=== PATIENT | female | born 1950 | race Caucasian/White ===

== ENCOUNTER 2018-03-13 10:03 | Inpatient (IN) ==
[2018-03-13] MEDS ORDERED: CeFAZolin Syr 2,000MG/20 ML 2,000 MG/20 ML SYRINGE IVPB ONE (10:31)
[2018-03-13] MEDS ORDERED: Ringers Solution, Lactated 1,000 ML IVC SCH ×2 (10:45→11:45)
[2018-03-13] MEDS ORDERED: Scopolamine Patch 1.5 MG PATCH.TD72 TD ONE (10:48)
--- NOTE | 2018-03-13 10:51 | Anesthesia Evaluation PreOp ---
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 Any Significant HX Other Medical History: Other (Left breast DCIS) Anesthesia History: Problems (PONV) Alcohol Use: none Drug use: none Medications and Allergies Rosuvastatin Calcium [Crestor] 5 mg PO DAILY 02/25/18 [History] 3 Allergy/AdvReac Type Severity Reaction Status Date / Time No Known Allergies Allergy Verified 03/13/18 10:34 - Meds/Allergy Pre-op Review Medications Reviewed: Yes Allergies Reviewed: Yes Beta Blockers on Current Med List: No Anesthesia Results - Labs POCT hgb 13.8 Anesthesia Exam Last Vital Signs Temp 97.9 F 03/13/18 10:29 Pulse 72 03/13/18 10:29 Resp 18 03/13/18 10:29 BP 132/74 03/13/18 10:29 Pulse Ox 97 03/13/18 10:29 Weight: 79 kg NPO (# of Hours): > 8 hrs - HEENT Pupil (Motor): Pupils equal, EOMI Mallampati: I Teeth: Missing, Poor dentition Oral Opening: Greater than 3 - CONDUIT REAMER OPERATOR LOC: Oriented - Cardiac Rhythm: Regular Murmur: None - Pulmonary Breath Sounds: bilateral Clear Respiratory Effort: Symmetrical Anesthesia Assess/Plan ASA Score: 3 Modified Hardy Scale for Level of Consciousness: Cooperative, oriented, and tranquil Anesthetic Plan: General (TIVA) Monitoring Plan: Standard Monitors Recovery Plan: PACU
[2018-03-13] MEDS ORDERED: *HR* Propofol 200 MG/20 ML VIAL IVP ONE (10:54)
[2018-03-13] MEDS ORDERED: Dexamethasone 4 MG/ML VIAL ONE (10:54)
[2018-03-13] MEDS ORDERED: *HR* FentaNYL (PF) 100 MCG/2 ML VIAL ONE (10:54)
[2018-03-13] MEDS ORDERED: *HR* Midazolam HCl 2 MG/2 ML VIAL ONE (10:54)
[2018-03-13] MEDS ORDERED: Ondansetron 4 MG/2 ML VIAL ONE (10:54)
[2018-03-13] MEDS ORDERED: Lidocaine -MPF 2% 2 ML VIAL ONE (10:54)
[2018-03-13] MEDS ORDERED: Propofol 500 MG/50 ML INFUS..BTL ONE (10:55)
--- NOTE | 2018-03-13 11:33 | History & Physical Report ---
Date of Encounter: 03/13/18 Time of Encounter: 11:32 24 Hour HP Update - Instructions Instructions: If the History and Physical is less than 30 days old and was completed prior to A.M. admission and or procedure and has NOT been updated on calendar day of procedure please complete this update prior to performing procedure. - Update Patient reports changes in Medical Condition: No Changes in examination, assessment, or condition: No Changes in Medication: No Preop tests/diagnostics Reviewed: Yes Surgery Remains Indicated: Yes Consent for Planned Operative Procedure(s) Verified: Yes - Pre-Operative Checklist Preoperative Checklist Indicated: Yes Prophylactic Antibiotic Ordered: Yes Home Medications Include Beta Zonia: No
[2018-03-13] MEDS ORDERED: MORPHINE SUL Oral CONC 10 MG/0.5 ML ORAL.SYG SL PRN (11:43)
[2018-03-13] MEDS ORDERED: *HR* Promethazine 25 MG/ML VIAL IVP PRN (11:43)
[2018-03-13] MEDS ORDERED: Ondansetron 4 MG/2 ML VIAL IVP ONE (11:43)
[2018-03-13] MEDS ORDERED: *HR* Meperidine 25 MG/ML SYRINGE IVP PRN (11:43)
[2018-03-13] MEDS ORDERED: Acetaminophen IV 1,000 MG/100 ML INFUS..BTL IVPB ONE (11:43)
[2018-03-13] MEDS ORDERED: Naloxone 0.4 MG/ML INJ IVP PRN ×2 (11:43→17:49)
[2018-03-13] MEDS ORDERED: Albuterol 2.5 MG/3 ML NEBULIZER IH ONE ×2 (11:43→13:47)
[2018-03-13] MEDS ORDERED: *HR* OxyCODONE Immed Rel 5 MG TABLET PO PRN (11:43)
[2018-03-13] MEDS ORDERED: *HR* Succinylcholine 200 MG/10 ML VIAL IVP ONE (12:40)
--- NOTE | 2018-03-13 13:15 | Operative Note ---
Date of procedure: 03/13/18 Pre-op diagnosis: Left Breast DCIS Post-op diagnosis: same Procedure: Left Breast excisional biopsy with needle localization Anesthesia: ASHLEY Surgeon: Aleksandr Bocanegra Was there an bus assistant present: No Estimated blood loss (cc): 3 Specimen: Left breast mass and ductal carcinoma in situ Condition: stable Disposition: same day Procedure in Detail: After informed consent, the patient was taken to the operating room placed in a supine position. After adequate sedation and anesthesia the left breast and chest wall were prepped and draped. The patient had undergone a preoperative needle localization in radiology. An incision was placed around the guide needle. Dissection was carried down through the breast tissues with electrocautery and sharp dissection. Once the mass was fully excised it was marked with ink to indicate its margins and the lesion was sent to mammography or evaluation. Mammography confirmed the calcifications and clip were within the specimen and there were excellent margins surrounding the ductal carcinoma in situ. Next hemostasis was obtained with electrocautery. The skin was closed with 3-0 Vicryl suture and Dermabond.
[2018-03-13] MEDS ORDERED: *HR* OxyCODONE/APAP 5/325 TABLET PO PRN (13:19)
--- NOTE | 2018-03-13 13:19 | Discharge Summary ---
Outpatient Proc Discharge Plan - Plan Additional Instructions: Patient may have a regular diet. Patient may shower tonight. Patient may return normal activities when she feels fit. Patient may begin driving in 3 days. Prescriptions: HYDROcodone/Acet 5/325 mg [[place] 5-325 mg] 1 tab PO Q6H PRN 7 Days #10 tab PRN Reason: Pain Home Medications: Rosuvastatin Calcium [Crestor] 5 mg PO DAILY 02/25/18 [History] HYDROcodone/Acet 5/325 mg [[place] 5-325 mg] 1 tab PO Q6H PRN 7 Days #10 tab 03/13 [Rx]
--- NOTE | 2018-03-13 14:59 | Anesthesia Evaluation Post Op ---
Date of Encounter: 03/13/18 Time of Encounter: 14:57 - Vital Signs Vital Signs: Last Vital Signs Temp 97.5 F L 03/13/18 14:40 Pulse 69 03/13/18 14:40 Resp 14 03/13/18 14:40 BP 132/79 03/13/18 14:40 Pulse Ox 97 03/13/18 14:40 - Lungs Lungs: Clear Ascult./Percussion (subjectively feels chest heaviness) - Airway Airway: Non-obstructed - Cardiovascular Regular Rate - Mental Status Mental Status: Alert & Oriented, Answers Appropriately - Pain Pain Scale: 2 - Nausea Vomiting Nausea Vomiting: Not Present - Hydration Hydration: Ice chips - Discharge PostOp Status: Transfer Patient to floor (Patient is to be admitted. Witnessed aspiration in the OR. Although initial CXR clear, lung sounds clear, and oxygenation in the mid to upper 90's on 2L nasal canula, patient with subjective chest heaviness in PACU. EKG shows NSR. Discussed patient with hospitalist to be admitted for observation. Patient in agreement.)
--- NOTE | 2018-03-13 17:58 | Internal Med History&Physical ---
Date of Encounter: 03/13/18 Time of Encounter: 20:43 Internal Medicine - H&P: HPI Chief complaint: shortness of breath Admitted From: Emergency Dept Plans for Post Hospital Care: Home History of present illness: Ms. Dukes is a 68 year old female who was admitted for left breast excisional biopsy with needle localization this morning. Patient was transferred to the PACU it was noted that patient had a shortness of breath right after the extubation. The resident is called hospitalist service to admit the patient. Reason for admission: Postoperative acute shortness of breath with uncertain etiology. Patient did complain of some kind of a subjective chest heaviness in PACU Family history: Noncontributory. Past Med Surg Social Fam HX - Past Medical History Medical history: arthritis, hyperlipidemia Psychiatric history: no psych history - Past Surgical History Surgical History: breast surgery, knee replacement - Social History Smoking Status: Never smoker Smokeless Tobacco Status: No Alcohol use: none Drug use: none - Family History Grandmother Hx Family Cancer: (pancreas) Internal Medicine - H&P: Meds Rosuvastatin Calcium [Crestor] 5 mg PO DAILY 02/25/18 [History] HYDROcodone/Acet 5/325 mg [[place] 5-325 mg] 1 tab PO Q6H PRN 7 Days #10 tab 03/13 [Rx] 3 Allergy/AdvReac Type Severity Reaction Status Date / Time No Known Allergies Allergy Verified 03/13/18 10:34 All Systems PM: A 10-system review of systems was performed and is negative for pertinent findings except as documented above in the HPI. - Constitutional Constitutional: no chills, no fever(s), no night sweats - EENT Eyes: no change in vision, no discharge, no pain, no photophobia Ears: no ear discharge, no ear pain, no tinnitus Nose, mouth and throat: no dysphagia, no nasal discharge, no neck pain, no sore throat - Cardiovascular Cardiovascular ROS IM: chest pain, dyspnea, no diaphoresis, no lightheadedness, no palpitations, no syncope - Respiratory Respiratory: no cough, no dyspnea, no wheezing, no excessive phlegm production - Gastrointestinal Gastrointestinal: no abdominal pain, no diarrhea, no hematemesis, no hematochezia, no melena, no nausea, no vomiting - Genitourinary Genitourinary: no change in urinary stream, no dysuria, no flank pain, no hematuria - Musculoskeletal Musculoskeletal ROS IM: no numbness, no tingling - Integumentary Integumentary IM: no rash, no unusual bruising - Neurological Neurological ROS: no confusion, no convulsions, no focal weakness, no numbness, no tingling, no tremor(s) - Hematologic/Lymphatic Hematologic/Lymphatic: no easy bruising - Constitutional Vitals: Temp Pulse Resp BP Pulse Ox 97.4 F L 69 16 128/68 98 03/13/18 15:08 03/13/18 15:08 03/13/18 15:08 03/13/18 15:08 03/13/18 15:08 General appearance: Present: A&O X 3, pleasant, no acute distress, answers questions appropriately - Head Head exam: Present: atraumatic, normocephalic - Eye Eye exam: Present: PERRL, conjuntiva pink, sclera anicteric Pupils: Present: PERRL - Neck Neck exam general surgery: Present: supple, trachea midline. Absent: lymphadenopathy - Respiratory Respiratory exam: Present: CTAB. Absent: accessory muscle use, rales, rhonchi, wheezes - Cardiovascular Cardiovascular exam: Present: RRR, +S1, +S2. Absent: diastolic murmur, gallop, rubs, systolic murmur - GI/Abdominal GI/Abdominal exam: Present: normal bowel sounds, soft, no peritoneal signs. Absent: distended, tenderness - Extremities Exam Extremities exam: Present: warm, radial pulses palpable and symmetrical. Absent : calf tenderness, cyanotic, pedal edema - Neurological Exam Neurological exam: Present: CN II-XII intact, oriented X3, no focal deficits. Absent: pronater drift, facial droop, speech deficit - Skin Skin exam: Present: dry, intact Internal Med - H&P Results - Labs CBC & Chem 7: 03/13/18 18:15 03/13/18 18:15 - Impressions ITS Impressions Guidance Needle Placement Ultrasound 03/13/18 11:15 IMPRESSION: 1. Successful left breast localization wire placement with the rebecca within the residual hypoechoic lesion abutting the clip and calcifications. 2. Please note that the localization wire rebecca did not separate from the main wire which predisposes the wire to being retracted. Immediately following the procedure this was secured to the chest wall with gauze and tape. 3. The specimen radiograph contains the targeted lesion and the biopsy clip. D/ / 03/13/2018 13:24:55 Gorge Senior MD / janes Interpreting Provider: Gorge Senior MD Breast Needle Localization 03/13/18 11:46 IMPRESSION: 1. Successful left breast localization wire placement with the rebecca within the residual hypoechoic lesion abutting the clip and calcifications. 2. Please note that the localization wire rebecca did not separate from the main wire which predisposes the wire to being retracted. Immediately following the procedure this was secured to the chest wall with gauze and tape. 3. The specimen radiograph contains the targeted lesion and the biopsy clip. D/ /13/2018 13:24:55 Gorge Senior MD / janes Interpreting Provider: Gorge Senior MD Chest X-Ray 03/13/18 12:56 IMPRESSION: Mild pulmonary vascular congestion. No focal consolidation. D/ / 03/13/2018 13:46:53 Silvio Smith MD / [facility] Interpreting Provider: Silvio Smith MD - Assessment and plan (1) Shortness of breath Current Visit: Yes Status: Acute Assessment and plan: 68/female Left breast excisional biopsy with needle localization. Post operatively noted that patient has chest pressure/shortness of breath. At this point etiology for shortness of breath cannot be multifactorial. Possibility of aspiration cannot be ruled out. Plan: Admit as a inpatient. Blood cultures/Impric Zosyn. Please consider V/Q scan as GFR is less than 50 even though creat is normal ( order for V/Q scan is not placed) I have examined this patient in PACU. I have also examined this patient in 3 a. Patient's was sitting next to the patient. Plan of care explained at length. they verbalize understanding (2) Chest tightness or pressure Current Visit: Yes Status: Acute Assessment and plan: Postoperative patient does have a chest tightness/pressure Cycle troponin. EKG/chest x-ray: Within acceptable range. (3) Ductal carcinoma in situ (DCIS) of left breast Current Visit: No Status: Chronic Assessment and plan: Patient does not would carcinoma in situ. Patient underwent left breast excisional biopsy with needle localization. (4) DVT prophylaxis Current Visit: Yes Status: Acute Assessment and plan: Heparin Medical decision making: This patient has a moderate to severe risk of worsening in spite of complex comorbid conditions - Time Spent With Patient Total time spent is greater than 50% in coordination of care (as documented) at patient's floor/unit and/or counseling patient:
[2018-03-13] MEDS ORDERED: 0.9 % Sodium Chloride 1,000 ML IVC SCH (18:00)
[2018-03-13 19:05] LABS: Basophils % 0.1 %; Hematocrit 40.6 % (35.3-44.9); Hemoglobin 13.2 g/dL (11.5-15.4); Immature Granulocytes % 0.4 % (0-4); Lymphocytes # 0.6 K/mcL (0.6-4.6); Lymphocytes % 4.1 %; Mean Corpuscular HGB Conc 32.5 g/dL (31.6-35.5); Mean Corpuscular Hemoglobin 27.4 pg (28.0-33.3); Mean Corpuscular Volume 84.2 fL (83.0-100.0); Mean Platelet Volume 10.4 fL (9.4-12.4); Monocytes # 0.3 K/mcL (0.0-1.3); Monocytes % 2.3 %; Neutrophils # 12.4 K/mcL (1.6-8.9); Platelet Count 234 K/mcL (140-400); Red Blood Count 4.82 M/mcL (3.82-4.97); Red Cell Distribution Width 13.4 % (11.5-14.5); Segmented Neutrophils % 93.1 %
[2018-03-13 19:16] LABS: Albumin/Globulin Ratio 1.5 (1.1-2.2); Bilirubin,Total 0.7 mg/dL (0.3-1.0); Calcium 9.1 mg/dL (8.6-10.3); Globulin 2.6 g/dL (2.4-3.5); Potassium 3.9 mEq/L (3.5-5.1); Total Protein 6.6 g/dL (6.4-8.9)
[2018-03-13] MEDS: *HR* Heparin 5,000 UNIT/ML VIAL SQ SCH (23:56)
[2018-03-13] MEDS: Piperacillin/Tazobactam 3.375 GM in 0.9 % Sodium Chloride Mini Bag 100 ML IVPB SCH (23:58)
[2018-03-14 01:44] LABS: Alanine Aminotransferase 19 Units/L (7-52); Albumin/Globulin Ratio 1.5 (1.1-2.2); Alkaline Phosphatase 85 Units/L (34-104); Aspartate Amino Transferase 16 Units/L (13-39); BUN/Creatinine Ratio 19 (6-26); Bilirubin,Total 0.8 mg/dL (0.3-1.0); Blood Urea Nitrogen 17 mg/dL (8-23); Carbon Dioxide 23 mEq/L (23-29); Chloride 108 mEq/L (98-107); Chol/HDL Ratio 4.1 (0-4.9); Cholesterol 227 mg/dL (< 200); Globulin 2.6 g/dL (2.4-3.5); Glucose 132 mg/dL (70-105); HDL Cholesterol 56 mg/dL (40-59); LDL Cholesterol,Calculated 153 mg/dL (0-99); Magnesium 1.8 mg/dL (1.6-2.6); Osmolality,Calculated 291 (280-300); Phosphorous 2.4 mg/dL (2.7-4.5); Sodium 139 mEq/L (136-145); Total Protein 6.6 g/dL (6.4-8.9); Triglycerides 90 mg/dL (< 150); eGFR For African Americans > 60 (> 60); eGFR For Non-African Americans > 60 (> 60)
[2018-03-14] MEDS ORDERED: Melatonin 3 MG TABLET PO PRN (02:00)
[2018-03-14 02:04] LABS: Activated Partial Thrombo Time 30.7 Seconds (26.0-36.0); INR 1.1; Prothrombin Time 11.4 Seconds (9.4-12.1)
[2018-03-14 02:51] LABS: Basophils % 0.1 %; Immature Granulocytes % 0.6 % (0-4); Lymphocytes % 7.3 %; Mean Corpuscular Hemoglobin 27.4 pg (28.0-33.3); Monocytes # 0.5 K/mcL (0.0-1.3); Monocytes % 3.3 %; Segmented Neutrophils % 88.7 %
[2018-03-14 02:59] LABS: Hematocrit 39.1 % (35.3-44.9); Hemoglobin 12.8 g/dL (11.5-15.4); Lymphocytes # 1.1 K/mcL (0.6-4.6); Mean Corpuscular HGB Conc 32.7 g/dL (31.6-35.5); Mean Corpuscular Volume 83.5 fL (83.0-100.0); Mean Platelet Volume 10.6 fL (9.4-12.4); Neutrophils # 13.8 K/mcL (1.6-8.9); Platelet Count 225 K/mcL (140-400); Red Blood Count 4.68 M/mcL (3.82-4.97); Red Cell Distribution Width 13.5 % (11.5-14.5)
--- NOTE | 2018-03-14 08:03 | Electrocardiograph Report ---
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
[2018-03-14] MEDS: Piperacillin/Tazobactam 3.375 GM in 0.9 % Sodium Chloride Mini Bag 100 ML IVPB SCH (09:24)
[2018-03-14] MEDS: *HR* Heparin 5,000 UNIT/ML VIAL SQ SCH (09:24)
[2018-03-14 10:42] VITALS: BP 110/61
--- NOTE | 2018-03-14 11:25 | Internal Med Progress Note ---
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 - Constitutional Vitals: Temp Pulse Resp BP Pulse Ox 98.1 F 72 16 110/61 91 03/14/18 10:39 03/14/18 10:39 03/14/18 10:39 03/14/18 10:39 03/14/18 10:39 General appearance: Present: A&O X 3, pleasant, no acute distress, answers questions appropriately Exam: CVS: RRR Lungs: CTAB, good air exchange, no wrr Abd: soft, nt/nd Ext: no edema, no cyanosis Internal Medicine: Result - Labs CBC & Chem 7: 03/14/18 00:36 03/14/18 00:36 Labs: Short CBC 03/13/18 03/14/18 Range/Units 18:15 00:36 WBC 13.3 H 15.6 H (4.3-11.1) K/mcL Hgb 13.2 12.8 (11.5-15.4) g/dL Hct 40.6 39.1 (35.3-44.9) % Plt Count 234 225 (140-400) K/mcL Neutrophils # 12.4 H 13.8 H (1.6-8.9) K/mcL BMP 03/13/18 03/14/18 18:15 00:36 Sodium 141 139 Potassium 3.9 4.0 Chloride 106 108 H Carbon Dioxide 21 L 23 BUN 14 17 Creatinine 1.10 0.91 Glucose 279 H 132 H Calcium 9.1 9.0 Cardiac Enzymes 03/13/18 03/14/18 03/14/18 Range/Units 18:15 00:36 05:58 Troponin I < 0.03 < 0.03 < 0.03 (< 0.04) ng/mL Liver Function 03/13/18 03/14/18 Range/Units 18:15 00:36 Total Bilirubin 0.7 0.8 (0.3-1.0) mg/dL AST 17 16 (13-39) Units/L ALT 21 19 (7-52) Units/L Alkaline Phosphatase 91 85 (34-104) Units/L Albumin 4.0 4.0 (3.5-5.7) g/dL - ABG Interpretation ABG results: PT/INR, D-dimer PT 11.4 Seconds (9.4-12.1) 03/14/18 00:36 - Impressions Impressions Guidance Needle Placement Ultrasound 03/13/18 11:15 IMPRESSION: 1. Successful left breast localization wire placement with the rebecca within the residual hypoechoic lesion abutting the clip and calcifications. 2. Please note that the localization wire rebecca did not separate from the main wire which predisposes the wire to being retracted. Immediately following the procedure this was secured to the chest wall with gauze and tape. 3. The specimen radiograph contains the targeted lesion and the biopsy clip. D/ : / 03/13/2018 13:24:55 Gorge Senior MD / janes Interpreting Provider: Gorge Senior MD Breast Needle Localization 03/13/18 11:46 IMPRESSION: 1. Successful left breast localization wire placement with the rebecca within the residual hypoechoic lesion abutting the clip and calcifications. 2. Please note that the localization wire rebecca did not separate from the main wire which predisposes the wire to being retracted. Immediately following the procedure this was secured to the chest wall with gauze and tape. 3. The specimen radiograph contains the targeted lesion and the biopsy clip. D/ /13/2018 13:24:55 Gorge Senior MD / janes Interpreting Provider: Gorge Senior MD Chest X-Ray 03/13/18 12:56 IMPRESSION: Mild pulmonary vascular congestion. No focal consolidation. D/ / 03/13/2018 13:46:53 Silvio Smith MD / [facility] Interpreting Provider: Silvio Smith MD - VTE Documentation of Mechanical Device: Intermittent pneumatic compression device Consult Discharge Plan - Plan Additional Instructions: Patient may have a regular diet. Patient may shower tonight. Patient may return normal activities when she feels fit. Patient may begin driving in 3 days. Referrals: Aleksandr Bocanegra DO [Partnered Physician] - 03/31/18 8:45 am Yuriy Davenport MD [Primary Care Provider] -
--- NOTE | 2018-03-14 13:51 | Discharge Summary ---
- NOTES TO OUTPATIENT PROVIDER Notes to Outpatient Provider: - Recheck CBC. - EKG had non specific T-wave abnormality though patient has had no complaints of chest pain. Discuss with patient if she would like further workup on this. Troponin were negative and she had no acute distress. Orders not resulted at time of discharge: Pending orders 03/13/18 13:06 Surgical Pathology [PTH] Routine 03/13/18 18:15 Culture,Blood [BC] Routine 03/14/18 00:36 Culture,Blood,Additional [BC] AM 0400 Date of Encounter: 03/14/18 Time of Encounter: 13:49 - Discharge Diagnosis (1) Shortness of breath Priority: Primary Status: Acute Assessment and Plan: Patient does not recall this episode, this happened while in the O.R. She is not short of breath, she has maintained adequate oxygenation 6 minute stress test shows she has no O2 desaturation. Transient episode of respiratory distress from aspiration that has resolved. Lung exam benign, CXR shows mild vascular changes, afebrile. Patient discharged in stable condition. (2) Ductal carcinoma in situ (DCIS) of left breast Priority: Secondary Status: Chronic (3) Chest tightness or pressure Priority: Secondary Status: Acute (4) DVT prophylaxis Priority: Secondary Status: Acute Hospital course: Ms. Dukes is a 68 year old female who was admitted for left breast excisional biopsy with needle localization on 03/13/18. Patient was transferred to the PACU it was noted that patient had a shortness of breath right after the extubation from a brief episode of aspiration. The resident is called hospitalist service to admit the patient. Reason for admission: Postoperative acute shortness of breath. Patient stated she does not ever recall shortness of breath on my discussion with her. She was admitted for further monitoring. A chest x-ray was done showing mild pulmonary vascular congestion, did not show any focal consolidation. She had blood cultures obtained and she was started emperically on Zosyn to prevent aspiration pneumonia. Troponin were cycled and were negative. An EKG showed no ST changes, but noted T wave abnormalities. She remained chest pain free. This respiratory distress was likely from brief aspiration. She was never hypoxic and a 6 minute walk test showed adequate oxygenation on room air. Patient was discharged home in stable condition to finish a course of Augmentin. We recommend further cardiac workup such as Echocardiogram and BNP but patient insists on going home since she feels okay and has remained symptom free. She was instructed to return to ED if SOB occurs or she develops chest pain, fevers, n/v. Of note her glucose was elevated to 279, a repeat was 132. She states she is following up with her primary care physician for that. Recommended to follow-up with primary care physician on T wave abnormalities. - Time Spent with Patient Total time spent providing and/or coordinating discharge services: - Discharge Medications Home Medications: Rosuvastatin Calcium [Crestor] 5 mg PO DAILY 02/25/18 [History] HYDROcodone/Acet 5/325 mg [[place] 5-325 mg] 1 tab PO Q6H PRN 7 Days #10 tab 03/13 [Rx] Amoxicillin/Clavulanate [Augmentin] 875 mg PO BIDWM #14 tablet 03/14/18 [Rx] Allergies/Adverse Reactions: 3 Allergy/AdvReac Type Severity Reaction Status Date / Time No Known Allergies Allergy Verified 03/13/18 10:34 Date of admission: 03/13/18 17:49 Primary care physician: Yuriy Davenport MD Discharging clinician: Sarah Shields - Constitutional Vitals: Temp Pulse Resp BP Pulse Ox 98.1 F 72 16 110/61 91 03/14/18 10:39 03/14/18 10:39 03/14/18 10:39 03/14/18 10:39 03/14/18 10:39 General appearance: Present: A&O X 3, pleasant, no acute distress, answers questions appropriately - Head Head exam: Present: atraumatic, normocephalic - Eye Eye exam: Present: PERRL, conjuntiva pink, sclera anicteric Pupils: Present: PERRL - Neck Neck exam general surgery: Present: supple, trachea midline. Absent: lymphadenopathy - Respiratory Respiratory exam: Present: CTAB. Absent: accessory muscle use, rales, rhonchi, wheezes - Cardiovascular Cardiovascular exam: Present: RRR, +S1, +S2. Absent: diastolic murmur, gallop, rubs, systolic murmur - GI/Abdominal GI/Abdominal exam: Present: normal bowel sounds, soft, no peritoneal signs. Absent: distended, tenderness - Extremities Exam Extremities exam: Present: warm, radial pulses palpable and symmetrical. Absent : calf tenderness, cyanotic, pedal edema - Neurological Exam Neurological exam: Present: CN II-XII intact, oriented X3, no focal deficits. Absent: pronater drift, facial droop, speech deficit - Skin Skin exam: Present: dry, intact - Patient Status Disposition: Home, Self-Care Condition: Good Functional capacity at discharge: independent ambulation Overall status at discharge: patient is back to baseline - Discharge Instructions Follow Up With: Aleksandr Bocanegra DO [Partnered Physician] - 03/31/18 8:45 am Yuriy Davenport MD [Primary Care Provider] - Additional Instructions: Patient may have a regular diet. Patient may shower tonight. Patient may return normal activities when she feels fit. Patient may begin driving in 3 days. - Diet and Activity Activity: other (as Directed by Surgery) Diet: advance to your usual diet - VTE Documentation of Mechanical Device: Intermittent pneumatic compression device
== END 2018-03-14 15:10 | disposition home or self-care (01) | DRG 585 ==
LOC: SAMDAY 10:03 → 3ANU 14:45
PROVIDERS: ADMIT Internal Medicine; ATTEND Internal Medicine